=== PATIENT | male | born 1975 | race Caucasian/White ===

== ENCOUNTER 2023-08-12 21:45 | Emergency (ER) | payer OTHER ==
[~2023-08-12] VITALS: Ht 170.2 cm; Wt 80.3 kg
[2023-08-12 21:59] VITALS: BP 159/85; PULSE 59; RESP 16; TEMP 97.9; O2SAT 100
[2023-08-12 23:16] VITALS: BP 152/82; PULSE 68; RESP 16
[2023-08-12 23:18] VITALS: O2SAT 99
== END 2023-08-13 00:52 | disposition home or self-care (01) ==
LOC: MED 21:45
DX: I10 Essential (primary) hypertension (principal); E78.5 Hyperlipidemia, unspecified; Z79.899 Other long term (current) drug therapy
CPT/HCPCS: 99281